=== PATIENT | male | born 1940 | race Asian ===

== ENCOUNTER 2016-11-04 06:01 | Day surgery (SDC) | payer MEDICARE, OTHER ==
[~2016-11-04] VITALS: Ht 162.6 cm; Wt 70.0 kg
[2016-11-04] MEDS ORDERED: SODIUM CHLORIDE 0.9% 1,000 ML IV ONE ×2 (06:05→07:00)
[2016-11-04] MEDS ORDERED: CLON.1 PO (06:45)
[2016-11-04] MEDS ORDERED: BUDE10.2 IH (06:45)
[2016-11-04] MEDS ORDERED: LABE200T PO (06:45)
[2016-11-04] MEDS ORDERED: OLME40 PO (06:45)
[2016-11-04] MEDS ORDERED: METF850T2 PO (06:45)
[2016-11-04] MEDS ORDERED: DIPH50 PO (06:45)
[2016-11-04] MEDS ORDERED: MONT10TA21 PO (06:45)
[2016-11-04] MEDS ORDERED: METO50 PO (06:45)
[2016-11-04] MEDS ORDERED: MIDAZOLAM HCL 2 MG/2 ML VIAL ONE (07:18)
[2016-11-04] MEDS ORDERED: FentaNYL CITRATE-PF 100 MCG/2 ML VIAL ONE (07:19)
[2016-11-04 07:22] LABS: GLUCOSE,POINT OF CARE 88 MG/DL (70-110)
[2016-11-04] MEDS ORDERED: MethylPREDNISolone SOD SUCC 125 MG/2 ML VIAL IVP ONE (08:15)
[2016-11-04] MEDS ORDERED: MethylPREDNISolone SOD SUCC 40 MG/ML VIAL ONE (08:40)
[2016-11-04] MEDS ORDERED: MethylPREDNISolone SOD SUCC 125 MG/2 ML VIAL ONE (08:41)
[2016-11-04] MEDS ORDERED: LIDOCAINE HCL 2% 30 ML JELLY ONE (17:28)
[2016-11-04] MEDS ORDERED: BENZOCAINE 20% 50 MCG/SPRAY 57 GM ONE (17:28)
[2016-11-04] MEDS ORDERED: LIDOCAINE HCL 4% 50 ML SOLUTION ONE (17:28)
[2016-11-04] MEDS ORDERED: OXYGEN THERAPY IH SCH (20:00)
== END 2016-11-04 09:40 | disposition home or self-care (01) ==
LOC: SURGERY 06:01
PROVIDERS: ATTEND Internal Medicine Critical Care Medicine
DX: J38.4 Edema of larynx (principal); B37.0 Candidal stomatitis; E11.9 Type 2 diabetes mellitus without complications; K21.9 Gastro-esophageal reflux disease without esophagitis; Z87.442 Personal history of urinary calculi
CPT/HCPCS: 31623; 31624; 71010; 82962; 87015; 87070; 87101; 87205; 87220; J2250; J2930; J3010; J7030; 88108; 88312; J2920